=== PATIENT | male | born 1980 | race Caucasian/White ===

== ENCOUNTER → 2017-03-28 | Outpatient (REF) ==
[~2017-03-28] MED LIST: NO HOME MEDICATIONS; PENICILLIN V500 MG PO
== END ==
LOC: ZLAB.WCH 18:26
DX: Z01.89 Encounter for other specified special examinations (principal)

== ENCOUNTER 2018-10-04 05:11 | Day surgery (SDC) | payer BC ==
[~2018-10-04] VITALS: Ht 182.9 cm; Wt 95.0 kg
[2018-10-04 05:45] VITALS: BP 145/84; PULSE 62; TEMP 97.6
[2018-10-04] MEDS ORDERED: RT ADVAIR 228 DISKUS IH (05:51)
[2018-10-04 09:45] VITALS: BP 132/71; PULSE 66; TEMP 98.2
[2018-10-04 10:00] VITALS: BP 136/80; PULSE 57
[2018-10-04] MEDS ORDERED: NORCO 325 MG-51 TAB PO (10:04)
[2018-10-04 10:15] VITALS: BP 119/76; PULSE 59
[2018-10-04 10:30] VITALS: BP 130/73; PULSE 56
== END 2018-10-04 11:32 | disposition home or self-care (01) ==
LOC: SDCO 05:11
DX: K43.2 Incisional hernia without obstruction or gangrene (principal); Z90.49 Acquired absence of other specified parts of digestive tract; J45.909 Unspecified asthma, uncomplicated
CPT/HCPCS: A4314; C1713; C1781; J0690; J1100; J1885; J2405; J2704; J3010; J7120